=== PATIENT | female | born 1970 | race Caucasian/White ===

== ENCOUNTER 2019-05-31 04:32 | Emergency (ER) | payer MEDICAID ==
[~2019-05-31] VITALS: Ht 160 cm; Wt 85.0 kg
[~2019-05-31 04:32] MED LIST: MECL12.574 PO; ONDA4TAB14 PO
[2019-05-31 04:35] VITALS: Ht 160 cm; Wt 85.0 kg
[2019-05-31] MEDS ORDERED: ONDANSETRON 4 MG INJ IV STA (05:49)
[2019-05-31] MEDS ORDERED: ONDANSETRON 4 MG INJ ONE (05:51)
[2019-05-31] MEDS ORDERED: MECLIZINE 12.5 MG TAB PO ONE (07:00)
[2019-05-31 09:34] VITALS: BP 112/59; PULSE 78; RESP 18
== END 2019-05-31 09:36 | disposition home or self-care (01) ==
LOC: E/R 04:32
DX: R42 Dizziness and giddiness (principal); R40.2142 Coma scale, eyes open, spontaneous, at arrival to emergency department; R40.2252 Coma scale, best verbal response, oriented, at arrival to emergency department; R40.2362 Coma scale, best motor response, obeys commands, at arrival to emergency department
CPT/HCPCS: 70450; 71045; 80048; 81001; 81003; 81025; 84484; 85025; 93005; 96374; J2405; Z7502; Z7610